=== PATIENT | female | born 1975 | race Caucasian/White ===

== ENCOUNTER 2021-05-25 16:01 | Outpatient (CLI) | payer BC ==
[2021-05-25 17:58] LABS: Hemoglobin 14.1 g/dL (12.0-15.5); Mean Corpuscular HGB CONC 33.3 g/dL (32.0-36.0); Mean Corpuscular Hemoglobin 30.9 pg (27.0-33.0); Mean Corpuscular Volume 92.6 fl (81.6-98.3); Mean Platelet Volume 10.8 fl (7.4-10.4); Platelet Count 277 10x3/uL (150-450); RBC Distribution Width 12.7 % (11.5-14.5); Red Blood Cell (RBC) Count 4.57 10x6/uL (3.90-5.03); White Blood Cell (WBC) Count 9.3 10x3/uL (3.5-10.5)
[2021-05-25 18:26] LABS: Anion Gap 12 mmol/L (10-20); BUN (Urea Nitrogen) 14 mg/dL (7.0-18.7); Calc. Creatinine Clearance 0 mL/min (70-130); Calcium 9.1 mg/dL (7.8-10.44); Carbon Dioxide 26 mmol/L (22-29); Chloride 102 mmol/L (98-107); Glucose 146 mg/dL (70-105); Potassium 4.3 mmol/L (3.5-5.1); Sodium 136 mmol/L (136-145)
[2021-05-26 18:57] LABS: SARS-CoV-2 PCR by NAA Not Detected (NotDetected)
== END 2021-05-25 16:02 | disposition home or self-care (01) ==
LOC: LABBT 16:01
PROVIDERS: ATTEND Neurological Surgery
DX: Z01.818 Encounter for other preprocedural examination (principal); M54.12 Radiculopathy, cervical region; Z20.822 Contact with and (suspected) exposure to COVID-19
CPT/HCPCS: 80048; 85027; 93005; 93010; U0003; U0005

== ENCOUNTER 2021-05-30 06:11 | Inpatient (IN) | payer BC ==
[2021-05-29 11:13] VITALS: BMI 27.1
[2021-05-30] MEDS ORDERED: Neomycin-Polymyxin 1 ML AMP ONE (06:24)
[2021-05-30] MEDS ORDERED: Fentanyl 250 MCG/5 ML VIAL ONE (06:36)
[2021-05-30] MEDS ORDERED: Midazolam HCl 2 mg/2 ml Vial ONE (06:36)
[2021-05-30] MEDS ORDERED: Bacitracin Zinc Ointment 30 gm TUBE ONE (06:53)
[2021-05-30] MEDS ORDERED: Phenylephrine 10 MG/ML VIAL ONE (07:07)
[2021-05-30] MEDS ORDERED: ceFAZolin 2 GM/DEX 5% 100 ML BAG ONE ×2 (07:16→16:12)
[2021-05-30] MEDS ORDERED: Rocuronium Bromide 10 MG/ML (10ML VIAL) ONE (07:29)
[2021-05-30] MEDS ORDERED: Ondansetron PF 4 MG/2 ML Vial ONE (07:29)
[2021-05-30] MEDS ORDERED: Lidocaine 1% PF 5 ML VIAL ONE (07:29)
[2021-05-30] MEDS ORDERED: Glycopyrrolate 0.2 MG/ML 5 ML SYRINGE ONE (07:29)
[2021-05-30] MEDS ORDERED: Dexamethasone 20 MG/5 ML VIAL ONE (07:29)
[2021-05-30] MEDS ORDERED: PROPOFOL 200 MG/20 ML VIAL ONE (07:29)
[2021-05-30] MEDS ORDERED: SUGAMMADEX SODIUM 200 MG/2 ML VIAL ONE (09:34)
[2021-05-30] MEDS ORDERED: HYDROmorphone 2 MG/ML VIAL ONE ×2 (10:13→12:53)
[2021-05-30] MEDS ORDERED: Fentanyl 100 MCG/2 ML VIAL ONE ×2 (10:13→10:56)
[2021-05-30] MEDS ORDERED: Promethazine HCl 25 MG/ML VIAL IVPB PRN (10:14)
[2021-05-30] MEDS ORDERED: Promethazine HCl 25 MG/ML VIAL IM PRN ×3 (10:14→21:15)
[2021-05-30] MEDS ORDERED: Ondansetron HCl/PF 4 MG/2 ML Vial IVP PRN (10:14)
[2021-05-30] MEDS ORDERED: Ketorolac Tromethamine 30 MG/ML VIAL IVP PRN (10:14)
[2021-05-30] MEDS ORDERED: HYDROmorphone 2 MG/ML VIAL SLOW IVP PRN (10:14)
[2021-05-30] MEDS ORDERED: Dexmedetomidine 200 MCG/2 ML VIAL ONE (10:16)
[2021-05-30] MEDS ORDERED: Ondansetron PF 4 MG/2 ML Vial IVP PRN ×2 (11:03→21:15)
[2021-05-30] MEDS ORDERED: Morphine 2 MG/ML VIAL SLOW IVP PRN (11:15)
[2021-05-30] MEDS ORDERED: Promethazine 25 MG TAB PO PRN (11:15)
[2021-05-30] MEDS ORDERED: diphenhydrAMINE 50 MG/ML VIAL IVP PRN ×2 (11:15→21:15)
[2021-05-30] MEDS ORDERED: diphenhydrAMINE 25 MG CAP PO PRN ×2 (11:15→21:15)
[2021-05-30] MEDS ORDERED: Milk Of Magnesia 30 ML UDCUP PO PRN (11:15)
[2021-05-30] MEDS ORDERED: Mag-Al 1200 mg/1200 mg/30 ML UDCUP PO PRN (11:15)
[2021-05-30] MEDS ORDERED: Acetaminophen/Codeine 30-300mg Tablet PO PRN ×2 (11:15)
[2021-05-30] MEDS ORDERED: tiZANidine HCl 4 MG TAB PO PRN (11:15)
[2021-05-30] MEDS ORDERED: traMADol HCl 50 MG TAB PO PRN ×2 (11:15)
[2021-05-30] MEDS ORDERED: Promethazine HCl 12.5 MG SUPP PR PRN (11:15)
[2021-05-30] MEDS ORDERED: ceFAZolin Sodium/D5W 2 GM in Premix Bag 1 BAG IVPB SCH (14:00)
[2021-05-30] MEDS ORDERED: tiZANidine HCl 4 MG TAB ONE (14:24)
[2021-05-30] MEDS ORDERED: Ketamine 50 MG/ML (10ML VIAL) ONE (14:39)
[2021-05-30] MEDS: Sodium Chloride 0.9% 1,000 ML IV SCH ×2 (17:39→23:57)
[2021-05-30] MEDS: Morphine 4 MG/ML VIAL SLOW IVP PRN ×2 (18:14→19:50)
[2021-05-30] MEDS ORDERED: HYDROmorphone 10 mg/100 ml CADD IVPB PRN (21:15)
[2021-05-30] MEDS ORDERED: Naloxone HCl 0.4 mg/ml Vial IV PRN (21:15)
[2021-05-30] MEDS ORDERED: Zolpidem Tartrate 5 MG TAB PO PRN (21:15)
[2021-05-30] MEDS ORDERED: Communication Order-Pharmacy FS SCH (21:15)
[2021-05-30] MEDS ORDERED: diphenhydrAMINE 50 MG/ML VIAL IM PRN (21:15)
[2021-05-30] MEDS: CEFAZOLIN 2 GM, Admixture Fee 1 EACH in Sodium Chloride 0.9% 100 ML IVPB SCH (23:55)
[2021-05-31] MEDS: CEFAZOLIN 2 GM, Admixture Fee 1 EACH in Sodium Chloride 0.9% 100 ML IVPB SCH (09:10)
[2021-05-31] MEDS: DULoxetine 60 MG CAP PO SCH (09:10)
[2021-05-31] MEDS ORDERED: Sodium Chloride 0.9% (PF) 10 ML VIAL FS PRN (09:45)
[2021-05-31] MEDS: Ketorolac Tromethamine 30 MG/ML VIAL IVP PRN ×2 (10:52→16:34)
[2021-05-31] MEDS: Dexamethasone 4 mg/ml Vial SLOW IVP SCH ×3 (10:52→20:42)
[2021-05-31] MEDS: Pantoprazole 40 MG VIAL IVP SCH ×2 (10:54→20:42)
[2021-05-31] MEDS: Diazepam 5 MG TAB PO PRN ×2 (13:04→20:42)
[2021-05-31] MEDS: Sodium Chloride 0.9% 1,000 ML IV SCH (16:45)
[2021-06-01] MEDS: Sodium Chloride 0.9% 1,000 ML IV SCH ×2 (02:21→16:34)
[2021-06-01] MEDS: Dexamethasone 4 mg/ml Vial SLOW IVP SCH ×4 (02:21→20:24)
[2021-06-01] MEDS ORDERED: Morphine 2 MG/ML VIAL SLOW IVP PRN (08:24)
[2021-06-01] MEDS ORDERED: traMADol HCl 50 MG TAB PO PRN (08:26)
[2021-06-01] MEDS ORDERED: Morphine 4 MG/ML VIAL SLOW IVP PRN (08:33)
[2021-06-01] MEDS: Pantoprazole 40 MG VIAL IVP SCH (08:54)
[2021-06-01] MEDS: DULoxetine 60 MG CAP PO SCH (08:54)
[2021-06-01] MEDS: Ketorolac Tromethamine 30 MG/ML VIAL IVP PRN ×2 (08:54→16:29)
[2021-06-01] MEDS: Acetaminophen/Codeine 30-300mg Tablet PO PRN ×2 (14:20→18:00)
[2021-06-01] MEDS ORDERED: Insulin Regular 300 UNITS/3 ML VIAL ONE (16:35)
[2021-06-01] MEDS ORDERED: Fluconazole 100 MG TAB PO SCH (17:45)
[2021-06-01] MEDS: Diazepam 5 MG TAB PO PRN (20:22)
[2021-06-02] MEDS: Dexamethasone 4 mg/ml Vial SLOW IVP SCH ×2 (03:33→08:28)
[2021-06-02] MEDS: Acetaminophen/Codeine 30-300mg Tablet PO PRN (03:59)
[2021-06-02 04:08] VITALS: TEMP 97.9
[2021-06-02] MEDS: Ketorolac Tromethamine 30 MG/ML VIAL IVP PRN (06:38)
[2021-06-02 08:16] VITALS: BP 156/96
[2021-06-02] MEDS: DULoxetine 60 MG CAP PO SCH (08:28)
== END 2021-06-02 11:55 | disposition home or self-care (01) | DRG 454 ==
LOC: SDC 06:11 → SURG B 09:55
PROVIDERS: ADMIT Neurological Surgery; ATTEND Neurological Surgery
PROC: 0RG20A0 Fusion of 2 or more Cervical Vertebral Joints with Interbody Fusion Device, Anterior Approach, Anterior Column, Open Approach (ICD-10-PCS; principal; 2021-05-30)
PROC: 0RG2071 Fusion of 2 or more Cervical Vertebral Joints with Autologous Tissue Substitute, Posterior Approach, Posterior Column, Open Approach (ICD-10-PCS; 2021-05-30)
PROC: 0RB30ZZ Excision of Cervical Vertebral Disc, Open Approach (ICD-10-PCS; 2021-05-30)
PROC: 0RP104Z Removal of Internal Fixation Device from Cervical Vertebral Joint, Open Approach (ICD-10-PCS; 2021-05-30)
PROC: 01N10ZZ Release Cervical Nerve, Open Approach (ICD-10-PCS; 2021-05-30)
DX: M50.30 Other cervical disc degeneration, unspecified cervical region (principal); M96.0 Pseudarthrosis after fusion or arthrodesis; Z20.822 Contact with and (suspected) exposure to COVID-19; R13.10 Dysphagia, unspecified; R49.0 Dysphonia
CPT/HCPCS: 76000; C1713; C1768; C1776; C9113; J0690; J1100; J1170; J1815; J1885; J2250; J2270; J2370; J2405; J2704; J3010; J3370; J3490; J7050

== ENCOUNTER 2021-06-14 12:36 | Outpatient (CLI) | payer BC | END 2021-06-14 12:37 | disposition home or self-care (01) | LOC: TBSIIMAG 12:36 | PROVIDERS: ATTEND Neurological Surgery | DX: M54.12 Radiculopathy, cervical region (principal); Z98.890 Other specified postprocedural states | CPT/HCPCS: 72040 ==

== ENCOUNTER 2021-07-23 09:57 | Outpatient (CLI) | payer BC | END 2021-07-23 09:58 | disposition home or self-care (01) | LOC: TBSIIMAG 09:57 | PROVIDERS: ATTEND Neurological Surgery | DX: M54.12 Radiculopathy, cervical region (principal); Z98.1 Arthrodesis status | CPT/HCPCS: 72040 ==

== ENCOUNTER 2021-10-11 12:45 | Outpatient (CLI) | payer BC | END 2021-10-11 12:46 | disposition home or self-care (01) | LOC: TBSIIMAG 12:45 | PROVIDERS: ATTEND Neurological Surgery | DX: M54.2 Cervicalgia (principal); Z98.1 Arthrodesis status | CPT/HCPCS: 72040 ==